=== PATIENT | female | born 1970 | race Caucasian/White ===

== ENCOUNTER → 2024-09-27 14:30 | Outpatient (REF) | payer OTHER, SELFPAY | LOC: HWWDC 14:30 | PROVIDERS: ATTENDING PHYSICIAN Nurse Practitioner Adult Health | DX: Z12.31 Encounter for screening mammogram for malignant neoplasm of breast (principal) | CPT/HCPCS: 77063; 77067 ==

== ENCOUNTER 2025-03-24 16:34 | Emergency (ER) | payer BC, SELFPAY ==
[2025-03-24 16:35] VITALS: BP 112/74
[2025-03-24 17:25] VITALS: BMI 24.8
--- NOTE | 2025-03-24 17:55 | ED.GENMED ---
History of Present Illness
General
Chief Complaint: Musculo-Skeletal Complaint
Source: patient
Exam Limitations: none
Time Seen by Provider: 03/24/25 17:06
Nursing documentation reviewed up to this point in time: agreed with
History of Present Illness
History of Present Illness:
55-year-old female presenting to the emergency department today with concerns of left knee discomfort has been intermittently painful over the past 2 weeks but today worsened when on the stepper. Difficulty ambulating at this point secondary to
pain mostly to the back of her knee. Denies any numbness weakness redness or warmth.
Review of Systems
Review of Systems
Allergies reviewed?: Yes
All Other Systems: ROS reviewed and negative except as documented in HPI and ROS
Phy Exam
Physical Exam
Physical Exam:
GENERAL: Alert , in no apparent distress
EYE: pupils equal and reactive
NECK: Supple, no significant adenopathy.
ENT: o/p clr, mmm.
CARDIAC: Regular rate and rhythm .
LUNGS: Clear breath sounds bilaterally, no acute respiratory distress, no wheezes/rales/rhonchi
ABDOMEN: Soft, without focal tenderness, no r/g, no cvat
NEUROLOGICAL: Alert and oriented, no focal neuro deficits
SKIN: Warm and dry, skin intact.
MUSCULOSKELETAL: Vague swelling to the popliteal fossa no redness or warmth range of motion to about 30 degrees from full extension before significant pain and unable to flex further. No pain to the anterior portion of the knee. No significant
joint laxity. Normal distal pulses normal ankle range of motion and hip range of motion. well perfused.
PSYCH: Normal and appropriate interaction.
Course
Orders/Labs/Results
Orders:
Orders
03/24/25 16:36
Knee, Left 4 or More Views [CR Knee - Left 4 Or More View*] Urgent
Comment:
Reason For Exam: left knee pain for the last two wks
03/24/25 17:55
Crutches-Treatment ONCE
Knee Immobilizer Left-Treatmen ONCE
Vital Signs
Initial and Last Documented VS:
Initial Vital Signs
Temp Pulse Resp BP Pulse Ox
97.6 F 78 16 112/74 98
03/24/25 16:35 03/24/25 16:35 03/24/25 16:35 03/24/25 16:35 03/24/25 16:35
Last Documented Vital Signs
Temp Pulse Resp BP Pulse Ox
97.6 F 78 16 112/74 98
03/24/25 16:35 03/24/25 16:35 03/24/25 16:35 03/24/25 16:35 03/24/25 17:56
MDM/Problems Addressed
MDM/Problems Addressed:
55-year-old female presenting to the emergency department today with concerns of left-sided knee pain intermittent over the past 2 weeks but worsening today after going on a stepper. On arrival vital signs are normal. Patient does have swelling to
the back of the knee. No joint laxity. Seems less likely to be ligamentous could be meniscal or Moreno's cyst. Advised for close outpatient follow-up with orthopedics. Return precautions given.
*Pulse Oximetry
SaO2: 98
Oxygen Mode of Delivery: Room air
Patient hypoxic: no (98)
*Critical Care Note
Total Time (30-74mins, 75-104mins- exclusive of procedures): Not Applicable
ED Attending Note
-
Portions of this chart may have been created with voice recognition software.� Occasional wrong word or��sound alike� substitutions may have occurred due to the inherent limitations of voice recognition software.
Discharge Plan
Departure
Patient Disposition: Home (Routine Discharge)
Date of Disposition: 03/24/25
Time of Disposition: 18:00
Patient with high blood pressure during this ER visit?: No
Condition: Good
Covid-19: Not Applicable
Discharge Problem:
Knee sprain
Instructions: Knee Sprain (DC)
Referrals:
Cyril Salas MD [Active, Orthopedics] - Follow up in 5-7 days
Jasmin Carr MD [Family Provider, Family Practice]
Activity Restrictions/Additional Instructions:
You came to the emergency department today with concerns of knee discomfort. You had a normal x-ray. Please follow closely with orthopedics. Return for any worsening, new or concerning symptoms.
Interventions
Interventions:
*Risk Screen - Suicide Last Done: 03/24/25 16:35
*General Assessment Last Done: 03/24/25 16:35
*Neglect/Abuse Screening Last Done: 03/24/25 16:35
*ED- Fall Risk Assessment Last Done: 03/24/25 17:25
*ED COVID-19 Vaccine History Last Done: 03/24/25 17:25
ED-Musculoskeletal Assessment Last Done: 03/24/25 17:25
Discharge Date and Time
Print Language: [id number]
== END 2025-03-24 18:08 | disposition home or self-care (01) ==
LOC: EMR 16:34
PROVIDERS: EMERGENCY PHYSICIAN Emergency Medicine; FAMILY PHYSICIAN Family Medicine
DX: S83.92XA Sprain of unspecified site of left knee, initial encounter (principal); X58.XXXA Exposure to other specified factors, initial encounter
CPT/HCPCS: 99283; 73564

== ENCOUNTER → 2025-05-30 16:28 | Outpatient (REF) | payer BC, SELFPAY ==
[2025-05-30 17:35] LABS: Hematocrit 40.6 % (37.0-47.0); Hemoglobin 13.8 g/dL (12.0-16.0); Mean Corp Hgb Conc. 34.0 g/dL (33.0-37.0); Mean Corpuscular Volume 90.0 fL (81.0-99.0); Nucleated Red Blood Cells % 0 %; Platelet Count 263 10^3/uL (130-400); Red Cell Dist. Width 12.4 % (11.5-14.5)
[2025-05-30 17:53] LABS: Blood Urea Nitrogen 23 mg/dl (7-17); Calcium 9.8 mg/dl (8.4-10.2); Carbon Dioxide 27 mmol/L (22-30); Chloride 104 mmol/L (98-107); Glucose 110 mg/dl (70-99); Potassium 4.1 mmol/L (3.5-5.1); Sodium 137 mmol/L (135-145); eGFR > 60.00
== END ==
LOC: RCS 16:28
PROVIDERS: ATTENDING PHYSICIAN Student in an Organized Health Care Education/Training Program
DX: Z01.818 Encounter for other preprocedural examination (principal)
CPT/HCPCS: 36415; 80048; 85025; 93005